=== PATIENT | female | born 1980 | race Caucasian/White ===

== ENCOUNTER 2019-04-16 10:27 | Emergency (ER) | payer OTHER ==
[~2019-04-16] VITALS: Ht 177.8 cm; Wt 88.0 kg
[~2019-04-16 10:27] MED LIST: ALBUTEROL1.25 MG/3; ALBUTEROL2.5 MG/3 M IH; AZITHROMYCIN250 MG; DELTASONE20 MG; INTESTINEX680 MG PO; MEDROLPACK PO; NAPROXEN500 MG PO; OSEL75CA; PROTONIX20 MG PO; PROTONIX40 MG PO; PROVENTIL HFA6.7 GM IH; SYMBICORT 16010.2 GM; VISTARIL25 MG PO
== END 2019-04-16 16:06 | disposition home or self-care (01) ==
LOC: ER 10:27
DX: J45.998 Other asthma (principal)

== ENCOUNTER 2020-12-31 07:29 | Emergency (ER) | payer OTHER ==
[~2020-12-31] VITALS: Ht 175.3 cm; Wt 86.2 kg
[2020-12-31] MEDS ORDERED: SINGULAIR10 MG PO (07:39)
[2020-12-31] MEDS ORDERED: PRILOSEC OTC20 MG PO (07:39)
[2020-12-31] MEDS ORDERED: ZOCOR40 MG PO (07:39)
== END 2020-12-31 12:36 | disposition home or self-care (01) ==
LOC: ER 07:29
DX: J06.9 Acute upper respiratory infection, unspecified (principal); J45.998 Other asthma

== ENCOUNTER 2021-04-17 09:10 | Emergency (ER) | payer OTHER ==
[~2021-04-17] VITALS: Ht 177.8 cm; Wt 83.9 kg
[~2021-04-17 09:10] MED LIST changes: +PRILOSEC OTC20 MG PO; +SINGULAIR10 MG PO; +ZOCOR40 MG PO
== END 2021-04-17 14:12 | disposition home or self-care (01) ==
LOC: ER 09:10
DX: J45.998 Other asthma (principal)

== ENCOUNTER 2024-01-02 15:24 | Emergency (ER) | payer OTHER ==
[~2024-01-02] VITALS: Ht 175.3 cm; Wt 49.4 kg
[2024-01-02] MEDS ORDERED: ACETAMINOPHEN 500 MG GEL..CAP PO ONE (19:30)
[2024-01-02] MEDS ORDERED: ONDANSETRON HCL 2 MG/ML VIAL IV ONE (19:30)
[2024-01-02 20:30] LABS: HEMATOCRIT 37.9 % (36.0-45.00); HEMOGLOBIN 12.7 g/dL (12.0-15.00); MEAN CELL VOLUME 90.8 fL (80.00-100.00); MEAN CORPUSCULAR HEMOGLOBIN 30.5 pg (27.00-32.0); MEAN CORPUSCULAR HGB CONC 33.6 g/dl (32.0-36.0); PLATELET COUNT 257 K/uL (150-450); RED BLOOD COUNT 4.18 M/uL (4.00-6.00); RED CELL DISTRIBUTION WIDTH 13.1 % (11.5-14.5)
[2024-01-02 20:32] LABS: PH,URINE 5.5 (5.0-8.0); URINE APPEARANCE Clear; URINE BILIRRUBIN Negative (NEGATIVE); URINE BLOOD Negative; URINE COLOR Yellow; URINE GLUCOSE Negative (NEGATIVE); URINE LEUKOCYTE Negative; URINE NITRATE Negative; URINE PROTEIN Negative (NEGATIVE); URINE UROBILINOGEN 0.2 E.U./dl
[2024-01-02 20:33] LABS: URINE BACTERIA 3070.6 uL (0.0-1933); URINE EPITHELIAL CELLS 24.5 uL (0.0-38.8); URINE WBC 16.2 uL (0.0-23.2)
[2024-01-02 20:44] LABS: URINE RBC 1.5 uL (0.0-20.8)
[2024-01-02 21:04] LABS: ALBUMIN 4.1 gm/dL (3.4-5.0); BILIRUBIN TOTAL 0.48 mg/dL (0.3-1.2); CALCIUM 9.9 mg/dL (8.5-10.1); CREATININE SERUM 0.9 mg/dL (0.55-1.02); GFR 68.02; GLOBULINA 4.1 G/DL (2.4-3.5); POTASSIUM 3.72 mEq/L (3.5-5.1); TOTAL PROTEIN 8.2 gm/dL (6.4-8.2)
[2024-01-02] MEDS ORDERED: MACRODANTIN100 M1 PO (22:15)
== END 2024-01-02 23:09 | disposition home or self-care (01) ==
LOC: ER 15:26
PROVIDERS: Nurse Practitioner Family
DX: N39.0 Urinary tract infection, site not specified (principal); R30.0 Dysuria; Z87.09 Personal history of other diseases of the respiratory system

== ENCOUNTER 2024-07-28 06:07 | Emergency (ER) | payer OTHER ==
[~2024-07-28] VITALS: Ht 177.8 cm; Wt 91.6 kg
[~2024-07-28 06:07] MED LIST changes: +MACRODANTIN100 M1 PO
[2024-07-28] MEDS ORDERED: 0.9 % SODIUM CHLORIDE 1,000 ML IV STA (07:11)
[2024-07-28] MEDS ORDERED: MEPERIDINE HCL/PF 50 MG/ML VIAL IM STA (07:12)
[2024-07-28] MEDS ORDERED: PROMETHAZINE HCL 25 MG/ML AMPUL IM STA (07:12)
[2024-07-28] MEDS ORDERED: KETOROLAC TROMETHAMINE 30 MG VIAL IV STA (07:12)
[2024-07-28] MEDS ORDERED: KETOROLAC TROMETHAMINE 30 MG VIAL ONE (07:41)
[2024-07-28] MEDS ORDERED: PROMETHAZINE HCL 25 MG/ML AMPUL ONE (07:41)
[2024-07-28 08:16] LABS: HEMATOCRIT 38.8 % (36.0-45.00); MEAN CELL VOLUME 92.1 fL (80.00-100.00); MEAN CORPUSCULAR HEMOGLOBIN 30.9 pg (27.00-32.0); MEAN CORPUSCULAR HGB CONC 33.5 g/dl (32.0-36.0); PH,URINE 6.5 (5.0-8.0); PLATELET COUNT 222 K/uL (150-450); RED BLOOD COUNT 4.21 M/uL (4.00-6.00); RED CELL DISTRIBUTION WIDTH 12.8 % (11.5-14.5); URINE APPEARANCE Clear; URINE BILIRRUBIN Negative (NEGATIVE); URINE BLOOD Negative; URINE COLOR Yellow; URINE GLUCOSE Negative (NEGATIVE); URINE KETONE Negative (NEGATIVE); URINE LEUKOCYTE Negative; URINE NITRATE Negative; URINE PROTEIN Negative (NEGATIVE)
[2024-07-28 08:20] LABS: URINE BACTERIA 546.8 uL (0.0-1933); URINE EPITHELIAL CELLS 10.2 uL (0.0-38.8); URINE RBC 4.8 uL (0.0-20.8); URINE WBC 3.1 uL (0.0-23.2)
[2024-07-28 08:26] LABS: URINE CAST 0.14 uL (0.0-1.40)
[2024-07-28 08:36] LABS: CALCIUM 9.1 mg/dL (8.5-10.1); CREATININE SERUM 0.95 mg/dL (0.55-1.02); GFR 63.9; POTASSIUM 4.17 mEq/L (3.5-5.1)
== END 2024-07-28 12:58 | disposition home or self-care (01) ==
LOC: ER 06:10
DX: R10.9 Unspecified abdominal pain (principal)
CPT/HCPCS: 36415; 74176; 96365; 96366; 96372; 99284; J1885; J2250; J7030

== ENCOUNTER 2025-04-22 09:27 | Outpatient (CLI) | payer OTHER | END 2025-04-22 09:29 | disposition home or self-care (01) | LOC: TOM 09:27 | PROVIDERS: ATTEND Internal Medicine Geriatric Medicine | DX: K57.32 Diverticulitis of large intestine without perforation or abscess without bleeding (principal) ==